=== PATIENT | female | born 1935 | race Caucasian/White ===

== ENCOUNTER 2017-06-26 08:57 | Outpatient (CLI) | payer OTHER ==
[~2017-06-26 08:57] MED LIST: ASA-EC81 MG PO; ATIVAN0.5 MG PO; ATIVAN2 MG PO; CORGARD20 MG PO; COZAAR100 MG PO; DICY10CA; NORVASC2.5 MG PO; VASOTEC5 MG PO; XANAX1 MG PO
== END 2017-06-26 13:57 | disposition home or self-care (01) ==
LOC: NUCLEAR 08:57
DX: M81.0 Age-related osteoporosis without current pathological fracture (principal)

== ENCOUNTER 2017-09-19 07:23 | Outpatient (CLI) | payer OTHER | END 2017-09-19 07:27 | disposition home or self-care (01) | LOC: SONOGRAMA 07:23 | DX: R10.84 Generalized abdominal pain (principal) ==

== ENCOUNTER 2018-11-06 09:18 | Outpatient (CLI) | payer OTHER | END 2018-11-06 09:26 | disposition home or self-care (01) | LOC: TOM 09:18 | DX: K57.90 Diverticulosis of intestine, part unspecified, without perforation or abscess without bleeding (principal); R10.84 Generalized abdominal pain; K31.7 Polyp of stomach and duodenum | CPT/HCPCS: 74178; Q9965 ==

== ENCOUNTER 2018-12-20 22:30 | Emergency (ER) | payer OTHER ==
[~2018-12-20] VITALS: Ht 157.5 cm; Wt 47.2 kg
[2018-12-20] MEDS ORDERED: TENORMIN25 MG (22:44)
[2018-12-20] MEDS ORDERED: MEDROLPACK (22:45)
[2018-12-21] MEDS ORDERED: VOLTAREN-XR100 MG PO (00:51)
== END 2018-12-21 00:58 | disposition home or self-care (01) ==
LOC: ER 22:30
DX: M13.89 Other specified arthritis, multiple sites (principal); M79.18 Myalgia, other site

== ENCOUNTER 2019-06-18 16:10 | Emergency (ER) | payer OTHER ==
[~2019-06-18] VITALS: Ht 154.9 cm; Wt 49.9 kg
[~2019-06-18 16:10] MED LIST changes: +MEDROLPACK; +TENORMIN25 MG; +VOLTAREN-XR100 MG PO
[2019-06-18] MEDS ORDERED: NORVASC5 MG PO (16:58)
== END 2019-06-18 20:38 | disposition home or self-care (01) ==
LOC: ER 16:10
DX: S00.83XA Contusion of other part of head, initial encounter (principal); S20.212A Contusion of left front wall of thorax, initial encounter; S20.211A Contusion of right front wall of thorax, initial encounter; S70.02XA Contusion of left hip, initial encounter; W18.09XA Striking against other object with subsequent fall, initial encounter; Y93.89 Activity, other specified; Y92.098 Other place in other non-institutional residence as the place of occurrence of the external cause; Y99.8 Other external cause status

== ENCOUNTER → 2020-01-01 | Emergency (ER) | payer OTHER ==
[~2020-01-01] VITALS: Ht 154.9 cm; Wt 45.4 kg
[~2020-01-01] MED LIST changes: +NORVASC5 MG PO
== END | disposition home or self-care (01) ==
LOC: ER 21:37
DX: S00.83XA Contusion of other part of head, initial encounter (principal); S70.01XA Contusion of right hip, initial encounter; W18.09XA Striking against other object with subsequent fall, initial encounter; Y93.89 Activity, other specified; Y92.89 Other specified places as the place of occurrence of the external cause; Y99.8 Other external cause status

== ENCOUNTER 2020-01-19 10:01 | Emergency (ER) | payer OTHER ==
[~2020-01-19] VITALS: Ht 154.9 cm; Wt 45.4 kg
== END 2020-01-19 17:40 | disposition home or self-care (01) ==
LOC: ER 10:01
DX: M25.851 Other specified joint disorders, right hip (principal); I10 Essential (primary) hypertension; Z20.828 Contact with and (suspected) exposure to other viral communicable diseases